=== PATIENT | male | born 1970 | race Caucasian/White ===

== ENCOUNTER 2025-08-08 16:23 | Emergency (ER) | payer MEDICAID, SELFPAY ==
[2025-08-08 16:40] VITALS: BP 144/92; PULSE 94; RESP 19; TEMP 36.7; O2SAT 97
[2025-08-08 16:41] VITALS: BMI 38.7
--- NOTE | 2025-08-08 16:54 | EDRME_ITS ---
Rapid Medical Screening Exam [facility] Arrival date/time: 08/08/25 16:23 54-year-old male with no known medical history presents to the emergency room with a chief complaint of erythema and discharge from his right nostril. Patient has an abscess in his nose that has been giving him problems for 1 week. Patient has failed his outpatient antibiotic therapy I have greeted and performed a focused initial assessment of this patient. A comprehensive ED assessment and evaluation of the patient, analysis of all test results, and completion of the medical decision making process will be conducted by additional ED providers. Chief Complaint: Skin/Abscess/Foreign Body Time Seen by Provider: 08/08/25 16:37 Vital signs: Vital Signs Temperature 98.1 F 08/08/25 16:40 Pulse Rate 94 08/08/25 16:40 Respiratory Rate 19 08/08/25 16:40 Blood Pressure 144/92 H 08/08/25 16:40 Pulse Oximetry (%) 97 08/08/25 16:40 Oxygen Delivery Method Room Air 08/08/25 16:40 Vital signs reviewed by provider: Yes Exam: Right nose swelling erythema and tenderness There is foul-smelling odor and discharge from the right nostril Clinical Impression: Nasal abscess/cellulitis/folliculitis
[2025-08-08] MEDS: cefTRIAXone 1,000 MG, LIDOCAINE 1% 20 ML 2.1 ML IM (17:17)
[2025-08-08 17:46] LABS: Lactate (Lactic Acid) 1.7 mMol/L (0.4-2.0)
[2025-08-08 17:50] LABS: Basophils # (Auto) 0.1 Thou/mm3 (0.0-0.2); Basophils % (Auto) 1 % (0-2.5); Eosinophils # (Auto) 0.2 Thou/mm3 (0.0-0.5); Eosinophils % (Auto) 3 % (0-10); Hematocrit 40.3 % (41.0-53.0); Hemoglobin 13.4 g/dL (13.5-16.0); Immature Granulocytes Auto 0.03 Thou/mm3 (0.00-0.00); Lymphocytes # (Auto) 2.6 Thou/mm3 (1.0-4.8); Lymphocytes % (Auto) 30 % (10-50); Mean Corpuscular HGB Conc 33.3 g/dl (31.0-37.0); Mean Corpuscular Hemoglobin 28.5 pg (25.0-35.0); Mean Corpuscular Volume 86 fL (80-100); Monocytes # (Auto) 0.8 Thou/mm3 (0.0-0.8); Monocytes % (Auto) 9 % (0-12); Neutrophils # (Auto) 4.9 Thou/mm3 (1.8-7.7); Neutrophils % (Auto) 57 % (37-80); Nucleated Red Blood Cell # 0.00 Thou/mm3 (0.00-0.00); Nucleated Red Blood Cell % 0 /100 WBC (0); Platelet Count 342 Thou/mm3 (140-440); RDW Standard Deviation 41.0 fL (35.1-43.9); Red Blood Count 4.71 Miln/mm3 (4.50-5.90); White Blood Count 8.6 Thou/mm3 (3.8-10.6)
[2025-08-08 18:36] LABS: Alanine Aminotransferase 12 U/L (10-49); Albumin, Serum 4.6 gm/dL (3.5-5.0); Albumin/Globulin Ratio 1.2 (1.2-2.2); Alkaline Phosphatase 175 U/L (46-116); Anion Gap 8 (7-16); Aspartate Amino Transferase 15 U/L (0-34); BUN/Creatinine Ratio 10 Ratio (12-20); Bilirubin,Total 0.3 mg/dL (0.3-1.2); Blood Urea Nitrogen 13 mg/dL (9-23); Calcium 9.7 mg/dL (8.3-10.6); Calcium (Corrected) 9.7 mg/dL (8.5-10.1); Carbon Dioxide 27.8 mMol/L (20.0-31.0); Chloride 95 mMol/L (98-107); Creatinine (Component) 1.3 mg/dL (0.6-1.3); Estimated Creatinine Clearance 85.8 mL/min (>60); Globulin 3.8 gm/dL (2.3-3.5); Osmolality,Calculated 279 (275-295); Potassium 3.5 mMol/L (3.4-5.1); Procalcitonin 0.18 ng/ml (0.0-0.49); Sodium 131 mMol/L (136-145); Total Protein 8.4 gm/dL (5.7-8.2); eGFR > 60 See Note
[2025-08-08 18:48] LABS: Glucose 412 mg/dL (74-106)
--- NOTE | 2025-08-08 19:18 | EDNOTE_ITS ---
ED Skin Abcess FB-RME/HPI General Chief complaint: Skin/Abscess/Foreign Body Stated complaint: ABSCESS TO NOSE FOR 1 WEEK Time Seen by Provider: 08/08/25 16:37 Arrival date/time: 08/08/25 16:23 RME / HPI RME / HPI narrative: 08/08/25 16:23 54-year-old male with no known medical history presents to the emergency room with a chief complaint of erythema and discharge from his right nostril. Patient has an abscess in his nose that has been giving him problems for 1 week. Patient has failed his outpatient antibiotic therapy I have greeted and performed a focused initial assessment of this patient. A comprehensive ED assessment and evaluation of the patient, analysis of all test results, and completion of the medical decision making process will be conducted by additional ED providers. See [facility] for Dr. Luu's HPI documentation. Related Data Previous Rx's ?Medication ?Instructions ?Recorded epinephrine 0.3 mg/0.3 mL 0.3 ml subcut .once PRN 08/07 12/25 injection, auto-injector hypersensitivity reaction #2 ea amoxicillin 875 mg-potassium 1 tab PO BID #20 tabs 12/01 clavulanate 125 mg tablet clindamycin HCl 300 mg capsule 300 mg PO QID 10 days # 40 caps 08/08/25 hydrocodone 5 mg-acetaminophen 325 2 tab PO Q8H PRN pa in #20 tabs 08/08/25 mg tablet sitagliptin phosphate 50 1 tab PO BID #60 tabs mg-metformin 1,000 mg tablet (Janumet) Allergies Allergy/AdvReac Type Severity Reaction Status Date / Time tramadol Allergy Mild Rash Verified 08/08/25 16:28 avocado Allergy Verified 08/08/25 16:27 pistachio nut Allergy Verified 08/08/25 16:27 shrimp Allergy Verified 08/08/25 16:27 Review of Systems Review of Systems Systems Reviewed: All systems reviewed, normal except as documented Past Medical History Past Medical History CARDIAC: Negative Congestive Heart Failure RESPIRATORY: Negative Chronic Obstructive Pulmonary Disease (COPD) GENITOURINARY: Negative Renal Disease MUSCULOSKELETAL: Positive Musculoskeletal Disorders ENDOCRINE: Negative Diabetes Mellitus Type 1 or Diabetes Mellitus Type 2 Social History SMOKING STATUS: Never smoker ED Exam Narrative Physical exam: See [facility] for Dr. Luu's physical exam documentation. Course Quality Measures none Orders Category Date Time Status Blood Culture (Lab) Stat Lab 08/08/25 17:29 Received CBC Stat Lab 08/08/25 17:29 Completed CMP [Comprehensive Metabolic Panel] Stat Lab 08/08/25 17:29 Completed Lactate (Lactic Acid) Stat Lab 08/08/25 17:29 Completed Procalcitonin Stat Lab 08/08/25 17:29 Completed Clindamycin [Cleocin] Med 08/08/25 19:28 Discontinued 300 mg PO X1 ONE HYDROcodone*/APAP 5/325 [[place] 5/325] Med 08/08/25 19:28 Discontinued 2 tab PO X1 ONE Insulin Regular Med 08/08/25 19:28 Discontinued 10 unit SC X1 ONE cefTRIAXone [Rocephin] 1,000 mg Med 08/08/25 16:53 Discontinued Lidocaine 1% 20 ml [Xylocaine 1% 20 ML] 2.1 ml IM X1 Vital Signs Vital signs: Vital Signs Temperature 98.1 F 08/08/25 16:40 Pulse Rate 94 08/08/25 16:40 Respiratory Rate 19 08/08/25 16:40 Blood Pressure 144/92 H 08/08/25 16:40 Pulse Oximetry (%) 97 08/08/25 16:40 Oxygen Delivery Method Room Air 08/08/25 16:40 Skin / Abscess / Foreign Body MDM Narrative MDM Narrative:: This section includes all my notes and documentations, including HPI, PE, and ED course. Mehdi Luu MD HPI: 54yo male here with worsening nasal redness and swelling and warmth and pain. No fever or chills. He also reports polyuria and polydipsia and dry mouth and fatigue and malaise. Difficult to pinpoint the onset. No other complaints. ROS: All negative except as documented in HPI. Physical Exam: General: Alert and oriented. No acute distress when remaining still. Eyes: Conjunctivae and lids clear. ENT: No nasal congestion. Neck: Supple. Heart: RRR. Lungs: No respiratory distress. Good air movement. No rhonchi, wheezing, rales. Abdomen: Soft and nontender. Normal bowel sounds. No distension. No rebound or guarding. Skin: Warm and dry. Entire nose is remarkable for erythema/edema/calor/tenderness. Neuro: Alert and oriented X 3. I reviewed all diagnostic test results. Blood tests are remarkable for Glucose 412. At this point, diagnoses include: Nose cellulitis Newly diagnosed diabetes Treatment here included: [place] ABX Insulin Recommended more outpatient care. Based on my best medical judgment, made decision no further evaluation or treatment indicated at this time. Patient understands and agrees to the disc harge instructions customized and printed, see below. Discharge Instructions from Dr. Luu printed for you: 1. Take Augmentin and clindamycin for your severe infection of the nose. 2. Take Janumet for diabetes. 3. [place] for severe pain. 4. See a private doctor on 08/09/2025 for recheck. Ask for help until your infection completely resolves. Ask for help with good management of your diabetes to prevent serious complications. Ask for regular physical exam and health maintenance. 5. Seek immediate medical care with fever, spreading redness, or with any concerns. Mehdi Luu MD Patient data External records reviewed:: [facility] previous records (Per chart review, patient has no relevant previous ED visits.) Clinical information provided by:: patient Social determinants that could affect healthcare access:: none Patient has the following chronic illnesses:: none How is presenting disease/condition affected by chronic disease/condition?: no chronic disease Evaluation data The following diagnostics were reviewed and interpreted by me:: lab results Lab and/or radiology exams considered but not ordered:: none Interpretation Summary: I reviewed all diagnostic test results. Blood tests are remarkable for Glucose 412. Medications / Prescriptions Medications or Prescriptions considered but not ordered:: none Medication administrations:: Medication Administration History Discontinued Medications Hydrocodone Bitart/Acetaminophen (Hydrocodone/Apap 5/325 Tablet) 2 tab PO X1 ONE Stop: 08/08/25 19:29 Last Admin: 08/08/25 20:15 Dose: 2 tab Documented By: Clindamycin HCl (Clindamycin 150 Mg Capsule) 300 mg PO X1 ONE Stop: 08/08/25 19:29 Last Admin: 08/08/25 20:13 Dose: 300 mg Documented By: Ceftriaxone Sodium 1,000 mg/ (Lidocaine HCl 2.1 ml) 0 mg IM X1 ONE Stop: 08/08/25 16:54 Last Admin: 08/08/25 17:17 Dose: 1,000 mg Documented By: Insulin Human Regular (Insulin Hum Regular 1 Unit/0.01 Ml (Per Unit)) 10 unit SC X1 ONE Stop: 08/08/25 19:29 Last Admin: 08/08/25 20:22 Dose: 10 unit Documented By: Co-signed By: DEANA MANCUSO Insulin Consultations Consultation(s) initiated? (list below): No Diagnosis Skin/Abscess Differential Diagnosis: abscess of skin or subcutaneous tissue, cellulitis, insect bites, impetigo and contact dermatitis Most likely diagnosis given after review of the tests above:: Nose cellulitis Newly diagnosed diabetes Admission Indicated Admission indicated?: not indicated Explain why admission is indicated or not indicated:: With no condition needing emergent intervention, there was no indication for admission. Admission Request Was there a request for admission?: No Disposition Plan Disposition Plan: Discharge Discharge Attestation Discharge Attestation: The patient and all family members were given an opportunity to ask questions and understood the discharge instructions. Discharge instructions specifically effects, indications for sooner follow up or return to the emergency department, and the expected course of current diagnosis. Patient condition: Stable Discharge Plan Plan Patient Disposition: HOME (Self Care) Prescriptions/Referrals Prescriptions/Med Rec: New clindamycin HCl 300 mg capsule 300 mg PO QID 10 Days Qty: 40 0RF hydrocodone-acetaminophen 5-325 mg tablet 2 tab PO Q8H MDD 6 PRN (Reason: pain) Qty: 20 0RF amoxicillin-pot clavulanate 875-125 mg tablet 1 tab PO BID Qty: 20 0RF Janumet 50-1,000 mg tablet 1 tab PO BID Qty: 60 0RF No Action epinephrine 0.3 mg/0.3 mL auto-injector 0.3 ml subcut .once PRN (Reason: hypersensitivity reaction) Qty: 2 0RF Referrals: No Primary/Family,Physician [Primary Care Provider] - In 1 week Problem List Clinical Impression: Nose cellulitis, Newly diagnosed diabetes Patient/Caregiver Discharge Instructions Discharge Activity: activity as tolerated Education Materials: ED Cellulitis, ED Diabetes- Overview Additional Instructions: Discharge Instructions from Dr. Luu printed for you: 1. Take Augmentin and clindamycin for your severe infection of the nose. 2. Take Janumet for diabetes. 3. [place] for severe pain. 4. See a private doctor on 08/09/2025 for recheck. Ask for help until your infection completely resolves. Ask for help with good management of your diabetes to prevent serious complications. Ask for regular physical exam and health maintenance. 5. Seek immediate medical care with fever, spreading redness, or with any concerns. Print Language: Uzbek Stand Alone Forms: [employer] Award Info., Patient Portal Info Letter
[2025-08-08] MEDS: CLINDAMYCIN 150 MG CAPSULE 300 MG PO (20:13)
[2025-08-08] MEDS: HYDROcodone/APAP 5/325 TABLET 2 TAB PO (20:15)
[2025-08-08] MEDS: INSULIN HUM REGULAR 1 UNIT/0.01 ML (PER UNIT) 10 UNIT SC (20:22)
== END 2025-08-08 20:30 | disposition home or self-care (01) ==
PROVIDERS: Nurse Practitioner Family; Emergency Provider Emergency Medicine
DX: J34.0 Abscess, furuncle and carbuncle of nose (principal); E11.9 Type 2 diabetes mellitus without complications; J32.9 Chronic sinusitis, unspecified; R63.1 Polydipsia; Z79.84 Long term (current) use of oral hypoglycemic drugs
CPT/HCPCS: 36415; 80053; 83605; 84145; 85025; 87040; 87081; 96372; 99282; J0696; J1815; J3490; A9270

== ENCOUNTER → 2025-08-19 | Outpatient (CLI) | payer MEDICAID, SELFPAY ==
[2025-08-19 09:27] LABS: Basophils # (Auto) 0.1 Thou/mm3 (0.0-0.2); Basophils % (Auto) 1 % (0-2.5); Eosinophils # (Auto) 0.2 Thou/mm3 (0.0-0.5); Eosinophils % (Auto) 2 % (0-10); Hematocrit 38.5 % (41.0-53.0); Hemoglobin 13.2 g/dL (13.5-16.0); Immature Granulocytes Auto 0.02 Thou/mm3 (0.00-0.00); Lymphocytes # (Auto) 1.9 Thou/mm3 (1.0-4.8); Lymphocytes % (Auto) 23 % (10-50); Mean Corpuscular HGB Conc 34.3 g/dl (31.0-37.0); Mean Corpuscular Hemoglobin 28.9 pg (25.0-35.0); Mean Corpuscular Volume 84 fL (80-100); Monocytes # (Auto) 0.5 Thou/mm3 (0.0-0.8); Monocytes % (Auto) 7 % (0-12); Neutrophils # (Auto) 5.4 Thou/mm3 (1.8-7.7); Neutrophils % (Auto) 67 % (37-80); Nucleated Red Blood Cell # 0.00 Thou/mm3 (0.00-0.00); Nucleated Red Blood Cell % 0 /100 WBC (0); Platelet Count 436 Thou/mm3 (140-440); RDW Standard Deviation 42.5 fL (35.1-43.9); Red Blood Count 4.56 Miln/mm3 (4.50-5.90); White Blood Count 8.1 Thou/mm3 (3.8-10.6)
[2025-08-19 09:46] LABS: Creatinine MALB Rnd Ur 118 mg/dL (30-125); Microalbumin Creat Ratio 3 mg/gCrea (<30); Microalbumin, Random Urine 3 mg/L (0-300)
[2025-08-19 09:47] LABS: Alanine Aminotransferase 24 U/L (10-49); Albumin, Serum 4.7 gm/dL (3.5-5.0); Albumin/Globulin Ratio 1.6 (1.2-2.2); Alkaline Phosphatase 99 U/L (46-116); Anion Gap 10 (7-16); Aspartate Amino Transferase 36 U/L (0-34); BUN/Creatinine Ratio 19 Ratio (12-20); Bilirubin,Total 0.3 mg/dL (0.3-1.2); Blood Urea Nitrogen 19 mg/dL (9-23); Calcium 9.4 mg/dL (8.3-10.6); Calcium (Corrected) 9.4 mg/dL (8.5-10.1); Carbon Dioxide 24.8 mMol/L (20.0-31.0); Cardiac Risk Estimate 3.4 RATIO (4.0-6.7); Chloride 104 mMol/L (98-107); Cholesterol 132 mg/dL (132-200); Creatinine (Component) 1.0 mg/dL (0.6-1.3); Globulin 2.9 gm/dL (2.3-3.5); Glucose 124 mg/dL (74-106); HDL Cholesterol 39 mg/dL (40-60); LDL Cholesterol,Calculated 69 mg/dL (0-130); Osmolality,Calculated 280 (275-295); Potassium 4.1 mMol/L (3.4-5.1); Sodium 139 mMol/L (136-145); Thyroid Stimulating Hormone 1.26 uIU/mL (0.55-4.78); Total Protein 7.6 gm/dL (5.7-8.2); Triglycerides 121 mg/dL (30-150); eGFR > 60 See Note
[2025-08-19 09:54] LABS: Glucose Estimated Average 315 mg/dL (80-131); Hemoglobin A1C 12.6 % Hgb (4.8-6.0)
== END | disposition home or self-care (01) ==
LOC: COPL 07:54
PROVIDERS: PCP Student in an Organized Health Care Education/Training Program; Referring Provider Student in an Organized Health Care Education/Training Program; Visit Provider Student in an Organized Health Care Education/Training Program
DX: E11.65 Type 2 diabetes mellitus with hyperglycemia (principal); I10 Essential (primary) hypertension
CPT/HCPCS: 36415; 80053; 80061; 82043; 82570; 83036; 84443; 85025